=== PATIENT | male | born 1980 | race Caucasian/White ===

== ENCOUNTER 2017-04-30 18:19 | Emergency (ER) | payer MEDICAID ==
[2017-04-30] MEDS: CEFAZOLIN 1 GM INJ IM (22:18)
[2017-04-30] MEDS: DIPHTH/TET/ACEL PERTUSS (ADULT) 0.5 ML VIAL IM* (22:19)
[2017-04-30] MEDS: LIDOCAINE 1% (MDV) 20 ML INJ SC (22:53)
== END 2017-04-30 23:43 | disposition home or self-care (01) ==
LOC: FTE 18:19
DX: S61.112A Laceration without foreign body of left thumb with damage to nail, initial encounter (principal); W23.0XXA Caught, crushed, jammed, or pinched between moving objects, initial encounter; Y92.810 Car as the place of occurrence of the external cause; Z87.891 Personal history of nicotine dependence; Z23 Encounter for immunization
CPT/HCPCS: 12001; 73140; 90471; 96372; 99284-25

== ENCOUNTER 2017-05-03 06:23 | Emergency (ER) | payer MEDICAID | END 2017-05-03 07:23 | disposition home or self-care (01) | LOC: FTE 06:23 | DX: Z48.01 Encounter for change or removal of surgical wound dressing (principal); E03.9 Hypothyroidism, unspecified | CPT/HCPCS: 99281; Z7502 ==

== ENCOUNTER 2017-05-09 06:02 | Emergency (ER) | payer MEDICAID | END 2017-05-09 08:22 | disposition home or self-care (01) | LOC: FTE 06:02 | DX: Z48.02 Encounter for removal of sutures (principal); E03.9 Hypothyroidism, unspecified | CPT/HCPCS: 99281; Z7502 ==